=== PATIENT | female | born 1950 | race Caucasian/White ===

== ENCOUNTER → 2016-10-14 | Outpatient (CLI) | payer OTHER ==
--- NOTE | 2016-10-14 15:55 | MAMMOGRAPHY REPORT ---
BILATERAL DIGITAL SCREENING MAMMOGRAM TOMOSYNTHESIS WITH CAD: 10/14/2016 CLINICAL HISTORY: Asymptomatic. Personal history of breast cancer. TECHNIQUE: Breast tomosynthesis in addition to standard 2D mammography was performed. Current study was also evaluated with a Computer Aided Detection (CAD) system. COMPARISON: Comparison is made to exams dated: 10/29/2011 mammogram and 06/07/2015 mammogram. BREAST COMPOSITION: There are scattered areas of fibroglandular density in both breasts. FINDINGS: No suspicious masses, calcifications, or areas of architectural distortion are noted in e ither breast. There has been no significant interval change compared to prior exams. There are stable post surgical changes in the right 12:00 breast from prior lumpectomy, including de nsity, architectural distortion, and coarse benign dystrophic calcifications at the lumpectomy bed. A linear scar marker denotes a scar on the right superior breast. Bilateral benign-appearing calci fications are not significantly changed. IMPRESSION: ACR BI-RADS CATEGORY 2: BENIGN There is no mammographic evidence of malignancy. A 1 year screening mammogram is recommended. The p atient will receive written notification of the results. Approximately 10% of breast cancers are not detected with mammography. A negative mammographic repor t should not delay biopsy if a clinically suggestive mass is present. Macarena Gomez M.D. /:10/14/2016 12:36:47 Aircraft [employer] Technical Officer: Catherine ARRIAZA(Suresh)(M), [facility] letter sent: Normal 1/2 BI-RADS Code: ACR BI-RADS Category 2: Benign
== END | disposition home or self-care (01) ==
LOC: C.MAMM 10:01
PROVIDERS: ATTEND Nurse Practitioner Family
DX: Z12.31 Encounter for screening mammogram for malignant neoplasm of breast (principal); Z85.3 Personal history of malignant neoplasm of breast

== ENCOUNTER 2017-05-28 05:06 | Inpatient (IN) | payer OTHER ==
[2017-04-28 14:04] VITALS: BMI 35.0
--- NOTE | 2017-04-28 14:38 | PAT Medication Instructions ---
Service Date Apr 28, 2017. Current Home Medication List Albuterol Hfa (Ventolin Hfa), 2 PUFFS INH QID PRN for RN Budesonide/Formoterol Fumarate (Symbicort 160/4.5 Inhaler ), 2 PUFFS INH BID Celecoxib (CeleBREX), 200 MG PO QAM Cholecalciferol (Vitamin D3), 4,000 UNITS PO 2XWWEEK Hydrocodone/Acetaminophen 5MG/325MG ([place] 5MG/325MG), 1 TABLET PO TID PRN for N Lisinopril/Hctz (Zestoretic 20MG/25MG), 1 TAB PO QAM Montelukast Sodium (Montelukast Sodium), 1 TAB PO QAM Prednisone (Prednisone), 5 MG PO PRN Simvastatin (Zocor), 20 MG PO QAM [Magnesium Ox], 250 MG PO QAM Medication Instructions For Your Scheduled Surgery - Ask your surgeon for instructions for: Celecoxib (CeleBREX), 200 MG PO QAM - Hold the following medications the morning of surgery: Prednisone (Prednisone), 5 MG PO PRN Lisinopril/Hctz (Zestoretic 20MG/25MG), 1 TAB PO QAM Cholecalciferol (Vitamin D3), 4,000 UNITS PO 2XWWEEK [Magnesium Ox], 250 MG PO QAM - Take the following medications the morning of surgery with a sip of water: Simvastatin (Zocor), 20 MG PO QAM Montelukast Sodium (Montelukast Sodium), 1 TAB PO QAM Hydrocodone/Acetaminophen 5MG/325MG ([place] 5MG/325MG), 1 TABLET PO TID PRN (if needed, can use up to four hours before surgery) Albuterol Hfa (Ventolin Hfa), 2 PUFFS INH QID PRN for RN (BRING WITH YOU TO THE HOSPITAL ON THE DAY OF SURGERY) Budesonide/Formoterol Fumarate (Symbicort 160/4.5 Inhaler ), 2 PUFFS INH BID - Take the following medications as scheduled the night before surgery: Budesonide/Formoterol Fumarate (Symbicort 160/4.5 Inhaler ), 2 PUFFS INH BID Albuterol Hfa (Ventolin Hfa), 2 PUFFS INH QID PRN for RN Hydrocodone/Acetaminophen 5MG/325MG ([place] 5MG/325MG), 1 TABLET PO TID PRN If you have any questions please call us at [phone] or [phone] or [phone]
[2017-04-28 14:59] LABS: BASO % 0.3 %; BASO ABS # 0.03 K/uL (0-0.2); EOS % 1.7 %; EOS ABS # 0.15 K/uL (0-0.5); HEMATOCRIT 39.8 % (37-47); HEMOGLOBIN 13.1 g/dL (12.0-16.0); IG# 0.02 K/uL (0.00-0.02); LYMPH % 26.4 %; LYMPH ABS # 2.28 K/uL (1.2-3.4); MEAN CELL VOLUME 91.7 fL (80-100); MEAN CORPUSCULAR HEMOGLOBIN 30.2 pg (25-34); MEAN CORPUSCULAR HGB CONC 32.9 g/dl (32-36); MEAN PLATELET VOLUME 9.5 fL (7.4-10.4); MONO % 6.9 %; NEUT % 64.5 %; NEUT ABS # 5.57 K/uL (1.4-6.5); PLATELET COUNT 273 K/uL (130-400); RED CELL DISTRIBUTION WIDTH CV 12.9 % (11.5-14.5); RED CELL DISTRIBUTION WIDTH SD 43.5 fL (36.4-46.3); WHITE BLOOD COUNT 8.65 K/uL (4.8-10.8)
[2017-04-28 15:00] LABS: INR 0.9 (0.9-1.1); PTT PATIENT 28.3 SECONDS (21.0-31.0)
[2017-04-28 15:32] LABS: CALCIUM 9.1 mg/dl (8.5-10.1); CREATININE 1.2 mg/dl (0.60-1.20); POTASSIUM 3.9 mmol/L (3.5-5.1)
--- NOTE | 2017-04-28 15:33 | DIAGNOSTIC IMAGING REPORT ---
CHEST 2 VIEWS ROUTINE CLINICAL HISTORY: Preoperative chest COMPARISON STUDY: No previous studies for comparison. FINDINGS: The cardiac and mediastinal contours are normal. There is no evidence of focal pulmonary consolidation. There is no evidence of failure. No pleural effusions are visualized.[ There are surgical clips project over the right axillary region. There are amorphous calcifications project over the right lower lung zone. It is unclear whether these are intra or extrathoracic. IMPRESSION: No active disease in the chest. Electronically signed by: Raj Woods M.D. 04/28/2017 3:32 PM Dictated Date/Time: 04/28/2017 3:31 PM
--- NOTE | 2017-05-26 17:12 | HISTORY & PHYSICAL EXAMINATION ---
DATE OF ADMISSION: 05/28/2017 CHIEF COMPLAINT: Primary osteoarthritis of the right hip. HISTORY OF PRESENT ILLNESS: Azalia is a pleasant 66-year-old female who has been having a several year history of right hip and groin pain. We tried extensive conservative treatment including intraarticular hip injections and physical therapy, but unfortunately she continues to have pain. X-rays and clinical examination have been diagnostic for primary osteoarthritis of the right hip. After failing extensive conservative treatment, she elected to proceed with a right total hip arthroplasty. PAST MEDICAL HISTORY: Significant for asthma, COPD, osteoarthritis, low back pain, obesity and breast cancer. PAST SURGICAL HISTORY: Significant for an appendectomy, right parotidectomy and lumpectomy. ALLERGIES: None. MEDICATIONS: Symbicort 160/4.5 mg 2 puffs twice a day, Ventolin 2 puffs every 4 hours as needed, Celebrex 200 mg daily, simvastatin 20 mg daily, Singulair 10 mg daily, lisinopril/HCTZ 20/125 mg daily, and prednisone 5 mg daily as needed. FAMILY HISTORY: Noncontributory. SOCIAL HISTORY: She is . She has 1-2 drinks a day. She has a 42-year history of a pack a day smoking, but quit in 2013. She does little activity. REVIEW OF SYSTEMS: She complains of right hip pain. All other pertinent review of systems is negative. PHYSICAL EXAMINATION: GENERAL: She is awake, alert and oriented x3. She is in no apparent distress. She is very pleasant. HEENT: Pupils are equal, round and reactive to light. Extraocular motion intact. Oral mucosa is pink and moist. HEART: Regular rate per radial pulse. LUNGS: Daphney symmetrically bilaterally with no audible breath sounds. ABDOMEN: Soft, nontender, and nondistended. MUSCULOSKELETAL: On physical examination of the right hip, she ambulates with a cane. She has significant pain with internal and external rotation of the right hip. Her leg lengths are essentially equal. She is neurovascularly intact. IMAGING DATA: X-rays of the right hip do show advanced osteoarthritis with joint space narrowing and osteophyte formation. IMPRESSION: Primary osteoarthritis of the right hip. PLAN: We will proceed with a right total hip arthroplasty. Postoperatively, she will be started on aspirin for DVT prophylaxis and kept in the hospital for postoperative medical management.
[~2017-05-28] VITALS: Ht 162.6 cm; Wt 93.1 kg
[2017-05-28] VITALS (7 sets, daily range): BP systolic 100–144; BP diastolic 62–73; PULSE 80–102; TEMP 36.3–37; O2SAT 93–100; Ht 162.6 cm; Wt 93.1 kg
[~2017-05-28 05:06] MED LIST: CHOL20007 PO; CLB/200 PO; HYDR-5688 PO; LISI-788 PO; MAGNESIUM OX PO; MONT1TAB5 PO; PRED-301 PO; SIMV20TA2 PO; SYMIN160 INH; VNTHFA/IN INH
[2017-05-28] MEDS ORDERED: FAMOTIDINE 20 MG TAB PO SCH (06:00)
[2017-05-28] MEDS ORDERED: CEFAZOLIN 2000MG IV PUSH 10 ML IV SCH (06:00)
[2017-05-28] MEDS ORDERED: ROPIVACAINE 5MG/ML 30 ML 150 MG, BUPIVACAINE 0.5% MPF INJ 30 ML, EpINEphrine HCL INJ 0.... INFIL SCH ×8 (06:00)
[2017-05-28] MEDS ORDERED: GABAPENTIN 300 MG CAP PO SCH (06:00)
[2017-05-28] MEDS ORDERED: LACTATED RINGER'S 1000ML 500 ML IV ONE (06:00)
[2017-05-28] MEDS ORDERED: LACTATED RINGER'S 1000ML 1,000 ML IV SCH ×2 (06:00)
[2017-05-28] MEDS ORDERED: ACETAMINOPHEN 500 MG TAB PO SCH (06:00)
[2017-05-28] MEDS ORDERED: BUPIVACAINE 0.5 % 5 MG/1 ML PF 10ML VIAL ONE (06:30)
[2017-05-28] MEDS ORDERED: BACITRACIN 50000 UNIT VIAL ONE ×2 (06:41→10:52)
[2017-05-28] MEDS ORDERED: ORTHO JOINT ANESTHETIC ONE (06:41)
[2017-05-28] MEDS ORDERED: MIDAZOLAM HCL 1 MG/ML 2ML VIAL ONE ×4 (06:42→08:53)
[2017-05-28] MEDS: TRANEXAMIC ACID INJ 1,000 MG in SYRINGE 0 ML IV SCH ×2 (06:43→16:11)
[2017-05-28] MEDS ORDERED: FENTANYL CITRATE INJ 50 MCG/1 ML 2 ML VIAL ONE ×2 (06:43→14:36)
[2017-05-28] MEDS ORDERED: PROPOFOL IV EMULSION 10 MG/ML 20 ML VIAL IV ONE ×3 (06:50→12:50)
--- NOTE | 2017-05-28 06:55 | History & Physical Bridge Note ---
H&P Re-Evaluation Bridge Note: I have examined the patient, reviewed the History & Physical and in the interval since the performance of the History & Physical I have noted the following changes of clinical significance: No changes noted
[2017-05-28] MEDS ORDERED: ATROPINE SULFATE 0.1 MG/ML 5ML SYR IV PRN (07:15)
[2017-05-28] MEDS ORDERED: EpHEDrine SULFATE INJ 50 MG/ML AMP IV PRN (07:15)
[2017-05-28] MEDS ORDERED: FENTANYL CITRATE INJ 50 MCG/1 ML 2 ML VIAL IV PRN (07:15)
[2017-05-28] MEDS ORDERED: ONDANSETRON INJ 2 MG/ML 2 ML VIAL IV PRN ×2 (07:15→13:45)
[2017-05-28] MEDS ORDERED: ONDANSETRON INJ 2 MG/ML 2 ML VIAL ONE (07:54)
[2017-05-28] MEDS ORDERED: DEXAMETHASONE SOD INJ 4 MG/ML VIAL ONE (07:54)
[2017-05-28] MEDS ORDERED: EpHEDrine SULFATE INJ 50 MG/ML AMP ONE (13:00)
[2017-05-28] MEDS ORDERED: PHENYLEPHRINE HCL INJ 10 MG/ML VIAL ONE (13:01)
--- NOTE | 2017-05-28 13:24 | DIAGNOSTIC IMAGING REPORT ---
R HIP UNILATERAL 1 VIEW CLINICAL HISTORY: RT ANTERIOR TOTAL hip arthroplasty. COMPARISON STUDY: Right hip 04/28/2017. FINDINGS: Total fluoroscopy time was 1 minute and 27 seconds. 4 fluoroscopic spot images of the right hip. There is a right total hip arthroplasty. The hardware appears intact. No fracture or dislocation. IMPRESSION: Fluoroscopy provided for right total hip arthroplasty. Electronically signed by: Anders Cortez M.D. 05/28/2017 1:23 PM Dictated Date/Time: 05/28/2017 1:22 PM
--- NOTE | 2017-05-28 13:36 | [facility] Post Operative Brief Note ---
Immediate Operative Summary Operative Date May 28, 2017. Pre-Operative Diagnosis Primary Osteoarthritis of Right Hip Post-Operative Diagnosis Same as preoperative Procedure(s) Performed Right Anterior Total Hip Arthroplasty, Cemented, with Kirk Diehl Surgeon Dr. Iván Castro Teaching Music Lessons Surgeon(s) Landon Apple PA-C Estimated Blood Loss 500 ml Findings as above Specimens A.) Right Femoral Head Complication(s) small crack around proximal femur that required cabling then a cemented stem Disposition Recovery Room / PACU
[2017-05-28] MEDS ORDERED: CEFAZOLIN IV 2,000 MG in DEXTROSE 5% 50ML 50 ML IV SCH (13:45)
[2017-05-28] MEDS ORDERED: MAGNESIUM HYDROXIDE SUSP 30 ML UDC PO PRN (13:45)
[2017-05-28] MEDS ORDERED: METOCLOPRAMIDE HCL INJ 5 MG/ML 2 ML VIAL IV PRN (13:45)
[2017-05-28] MEDS ORDERED: BISACODYL 10 MG SUPP PR PRN (13:45)
[2017-05-28] MEDS ORDERED: ALBUTEROL HFA 8 GM INHALER INH PRN (13:45)
[2017-05-28] MEDS ORDERED: SOD PHOSPHATE/SOD BIPHOSPHATE ENEMA 132 ML BTL PR PRN (13:45)
--- NOTE | 2017-05-28 14:26 | DIAGNOSTIC IMAGING REPORT ---
AP PELVIS, CROSSTABLE LATERAL RIGHT HIP History: Right total hip arthroplasty. Degenerative arthritis. Postop. FINDINGS: The patient is status post a right total hip arthroplasty. The hardware is intact. No fracture or dislocation. Skin paras and surgical drains are in place. IMPRESSION: Right total hip arthroplasty. No evidence for hardware complication Electronically signed by: Anders Cortez M.D. 05/28/2017 2:25 PM Dictated Date/Time: 05/28/2017 2:23 PM
--- NOTE | 2017-05-28 14:37 | OPERATIVE REPORT ---
DATE OF OPERATION: 05/28/2017 PREOPERATIVE DIAGNOSIS: Primary osteoarthritis of the right hip. POSTOPERATIVE DIAGNOSIS: Same. PROCEDURE: Right total hip arthroplasty. SURGEON: Dr. Iván Castro. LEARNING SPECIALIST: Landon Apple PA-C. ANESTHESIA: Spinal that was converted to general. COMPLICATIONS: Small crack in the proximal femur that was treated with a cerclage wire and then a long cemented stem. CONDITION: Stable to PACU. IMPLANTS USED: I used a Ana CRC size 13 x 170 cemented stem with a size 32 ceramic head with a -3 neck and a 48 mm cup with a size 32 E-poly liner and a single 20 mm screw. INDICATIONS: Azalia is a pleasant 66-year-old female who presented to my office with chronic severe right hip and groin pain. X-rays and clinical examination were diagnostic for severe osteoarthritis of the right hip. After failing conservative treatment, she elected to undergo a right total hip arthroplasty. OPERATION AND FINDINGS: On 05/28/2017 she arrived at [facility] for the above procedure. She was seen in the preoperative holding area and the operative extremity is identified and signed. She was given a preoperative antibiotic and a spinal anesthetic. She was taken back to the operating room, laid on the table in supine position and put under basic sedation. The right hip was then brought out to a Purist leg positioner. The right hip was then prepped and draped in sterile fashion. Time-out was done and the patient and operative extremity was properly identified. An anterior approach was used. Dissection was taken down through the fascia and the tensor muscle was retracted laterally and the rectus was retracted medially. The circumflex vessels were ligated and the capsule was incised and tagged for later repair. The femoral neck was then resected and the acetabulum was exposed. Sequential reaming up to a size 47 reamer was done. This gave good circumferential bleeding bone. A 48 mm cup was then impacted into place. A single 20 mm screw was placed and E-poly liner was snapped into place. The cup positioning was checked under fluoroscopy. The proximal femur was then exposed. The canal was opened and a single broach was placed down the canal. I was not real happy with the alignment so I got an x-ray. The x-rays showed that the broach had penetrated the posterolateral cortex. Unfortunately I then noticed a crack going vertically up through the greater trochanter. I placed a cerclage wire around the proximal femur. I then did sequential broaching and the broaching looked good. I decided to cement down the stem just for added stability. The stem was cemented and x-rays showed that the cemented stem had also gone out the posterolateral cortex. The stem was then removed and the cement was removed with an Ultra-Drive device. Once this cement was removed a size 13 x 170 Ana CRC long stem stem was trialed. I was able to easily get it down the canal. A size 32 -3 neck was then trialed and the hip was reduced. Fluoroscopic x-rays showed anatomic alignment. The final size 13 x 170 Ana stem was then cemented in place. A 32 mm ceramic head with -3 neck was then impacted into place. The hip was reduced. Final fluoroscopic x-rays were taken. I was happy with the overall alignment, with the version and the leg lengths were back anatomically. The surrounding soft tissues were injected with 100 mL orthopedic pain control cocktail. The surrounding soft tissues were then irrigated with 3 liters of normal saline solution with bacitracin. Gurley through the case, all gloves and gowns were changed and she got another dose of antibiotics and we were about 2-1/2 hours into the case. A drain was placed. The fascia was then closed with #1 PDS suture. Skin was closed with 3-0 Vicryl, 3-0 V-Loc suture and paras. Prinovac dressing was placed. She did have a little abrasion at the superior aspect of her incision that was documented. She was then extubated and taken to the postanesthesia care unit in stable condition. She tolerated the procedure well. I attest to the content of the Intraoperative Record and any orders documented therein. Any exceptions are noted below. IWONA
--- NOTE | 2017-05-28 14:59 | Anesthesiology Progress Note ---
Anesthesia Post Op Note Date & Time May 28, 2017 at 14:58 Vital Signs Pain Intensity: 4 Vital Signs Past 12 Hours Date Time Temp Pulse Resp B/P (MAP) Pulse Ox O2 Delivery O2 Flow Rate FiO2 05/28/17 14:55 79 13 104/60 94 Nasal Cannula 2 05/28/17 14:45 77 14 108/71 98 Nasal Cannula 2 05/28/17 14:35 74 15 97/66 99 Nasal Cannula 2 05/28/17 14:25 69 14 100/65 100 Oxymask 10 05/28/17 14:15 76 18 129/57 100 Oxymask 10 05/28/17 14:07 36.0 70 16 123/71 100 Oxymask 10 05/28/17 05:40 37 96 20 144/72 94 Room Air Notes Mental Status: alert / awake / arousable, participated in evaluation Pt Amnestic to Procedure: Yes Nausea / Vomiting: adequately controlled Pain: adequately controlled Airway Patency, RR, SpO2: stable & adequate BP & HR: stable & adequate Hydration State: stable & adequate Neuraxial Anesthesia: was administered, sensory block is resolving Anesthetic Complications: no major complications apparent
[2017-05-28] MEDS: OXYCODONE HCL IR 5 MG TAB (IMMEDIATE RELEASE) PO PRN ×2 (16:26→21:21)
[2017-05-28] MEDS: ACETAMINOPHEN IV 1,000 MG in EMPTY BAG 0 ML IV SCH ×2 (16:46→23:35)
[2017-05-28] MEDS: SODIUM CHLORIDE 0.9% 1000ML 1,000 ML IV SCH (16:49)
[2017-05-28] MEDS ORDERED: NURSING VERBAL MED ORDER ONE ×2 (17:00→18:30)
[2017-05-28] MEDS: CEFAZOLIN IV 2,000 MG in SYRINGE 0 ML IV SCH (17:55)
[2017-05-28] MEDS: MoRPHine SULFATE 2 MG/ML CARP IV PRN (20:35)
[2017-05-28] MEDS: DOCUSATE SODIUM 100 MG CAP PO SCH (21:13)
[2017-05-28] MEDS: SENNA 8.6 MG TAB PO SCH (21:14)
[2017-05-28] MEDS: BUDESONIDE/FORMOTEROL FUMARATE 160/4.5 60 PUFFS/INHALER INH SCH (21:14)
[2017-05-28] MEDS: ASPIRIN 325 MG ECTAB PO SCH (21:18)
[2017-05-29] VITALS (10 sets, daily range): BP systolic 99–126; BP diastolic 55–70; PULSE 96–112; TEMP 36.6–37; O2SAT 92–98
[2017-05-29] MEDS: CEFAZOLIN IV 2,000 MG in SYRINGE 0 ML IV SCH (02:38)
[2017-05-29] MEDS: SODIUM CHLORIDE 0.9% 1000ML 1,000 ML IV SCH ×2 (02:38→13:02)
[2017-05-29 06:15] LABS: BASO % 0.1 %; BASO ABS # 0.01 K/uL (0-0.2); HEMATOCRIT 25.2 % (37-47); HEMOGLOBIN 8.5 g/dL (12.0-16.0); IG# 0.05 K/uL (0.00-0.02); LYMPH % 7.5 %; LYMPH ABS # 1.06 K/uL (1.2-3.4); MEAN CORPUSCULAR HGB CONC 33.7 g/dl (32-36); MEAN PLATELET VOLUME 9.6 fL (7.4-10.4); MONO % 9.1 %; MONO ABS # 1.29 K/uL (0.11-0.59); NEUT % 82.9 %; NEUT ABS # 11.75 K/uL (1.4-6.5); PLATELET COUNT 193 K/uL (130-400); RED CELL DISTRIBUTION WIDTH CV 13.5 % (11.5-14.5); RED CELL DISTRIBUTION WIDTH SD 45.5 fL (36.4-46.3); WHITE BLOOD COUNT 14.16 K/uL (4.8-10.8)
[2017-05-29 06:51] LABS: CREATININE 1.33 mg/dl (0.60-1.20); POTASSIUM 4.5 mmol/L (3.5-5.1)
[2017-05-29] MEDS: ACETAMINOPHEN IV 1,000 MG in EMPTY BAG 0 ML IV SCH (07:42)
[2017-05-29] MEDS: MoRPHine SULFATE 2 MG/ML CARP IV PRN (07:43)
[2017-05-29] MEDS: BUDESONIDE/FORMOTEROL FUMARATE 160/4.5 60 PUFFS/INHALER INH SCH ×2 (07:49→22:11)
[2017-05-29] MEDS: MULTIVITAMIN TAB PO SCH (07:50)
[2017-05-29] MEDS: DOCUSATE SODIUM 100 MG CAP PO SCH ×2 (07:50→22:12)
[2017-05-29] MEDS: ASPIRIN 325 MG ECTAB PO SCH ×2 (07:50→22:12)
[2017-05-29] MEDS: MAGNESIUM OXIDE 400 MG TAB PO SCH (07:50)
[2017-05-29] MEDS: LISINOPRIL/HCTZ 20/25MG TAB PO SCH (07:51)
[2017-05-29] MEDS: MONTELUKAST SOD 10 MG TAB PO SCH (07:51)
[2017-05-29] MEDS: PANTOprazole SOD 40 MG TAB PO SCH (07:51)
[2017-05-29] MEDS: SIMVASTATIN 20 MG TAB PO SCH (07:51)
[2017-05-29] MEDS: OXYCODONE HCL IR 5 MG TAB (IMMEDIATE RELEASE) PO PRN ×3 (11:31→23:57)
[2017-05-29] MEDS: KETOROLAC TROMETHAMINE 15 MG/ML VIAL IM SCH ×2 (13:45→22:15)
[2017-05-29] MEDS: SENNA 8.6 MG TAB PO SCH (22:12)
[2017-05-29] MEDS: ACETAMINOPHEN 500 MG TAB PO SCH (22:13)
[2017-05-30] MEDS: ACETAMINOPHEN 500 MG TAB PO SCH ×3 (05:17→21:40)
[2017-05-30] MEDS: OXYCODONE HCL IR 5 MG TAB (IMMEDIATE RELEASE) PO PRN ×4 (05:17→21:41)
[2017-05-30 05:50] LABS: HEMATOCRIT 25.7 % (37-47); HEMOGLOBIN 8.5 g/dL (12.0-16.0)
[2017-05-30] MEDS ORDERED: NURSING VERBAL MED ORDER ONE ×2 (06:15→09:45)
[2017-05-30] MEDS: KETOROLAC TROMETHAMINE 15 MG/ML VIAL IV. SCH ×3 (06:33→21:42)
[2017-05-30 07:00] VITALS: BP 98/60; PULSE 89; TEMP 36.6; O2SAT 92
[2017-05-30] MEDS: BUDESONIDE/FORMOTEROL FUMARATE 160/4.5 60 PUFFS/INHALER INH SCH ×2 (08:44→21:39)
[2017-05-30] MEDS: MAGNESIUM OXIDE 400 MG TAB PO SCH (08:45)
[2017-05-30] MEDS: DOCUSATE SODIUM 100 MG CAP PO SCH ×2 (08:45→21:00)
[2017-05-30] MEDS: LISINOPRIL/HCTZ 20/25MG TAB PO SCH (08:46)
[2017-05-30] MEDS: MULTIVITAMIN TAB PO SCH (08:46)
[2017-05-30] MEDS: MONTELUKAST SOD 10 MG TAB PO SCH (08:46)
[2017-05-30] MEDS: PANTOprazole SOD 40 MG TAB PO SCH (08:46)
[2017-05-30] MEDS: SIMVASTATIN 20 MG TAB PO SCH (08:46)
[2017-05-30] MEDS: ASPIRIN 325 MG ECTAB PO SCH ×2 (08:52→21:39)
[2017-05-30] MEDS ORDERED: CHOLECALCIFEROL 1000 INTER.UNIT TAB PO SCH (09:00)
[2017-05-30] MEDS ORDERED: HYDR-5688 PO (09:41)
[2017-05-30] MEDS ORDERED: ASPEC325 PO (09:42)
--- NOTE | 2017-05-30 09:44 | Discharge Instructions ---
Discharge Instructions Date of Service May 30, 2017. Admission Reason for Admission: Right Hip Osteoarthritis Discharge Discharge Diagnosis / Problem: Right Total Hip Discharge Goals Goal(s): Decrease discomfort, Improve function Activity Recommendations Activity Limitations: as noted below . Instructions / Follow-Up Instructions / Follow-Up Activity and Therapy Recommendations: * If you are using [facility] then Physical Therapy will be provided until they feel you are ready to start Outpatient Physical Therapy. If you are not using a Home Health agency then Outpatient Physical Therapy should start about 3-5 days from your day of surgery. Therapy will last about 3-6 weeks * You were shown a series of exercises in the hospital. Do these exercises three times each day including the exercises you were shown in physical therapy. * Get up and walk several times each day.~ For the first four weeks, try not to stand or walk for more than one hour at a time. If you do stand or walk for more than one hour, you will not hurt anything, but your leg will likely swell.~ ~ * As you feel comfortable, you may change from the walker or crutches to a cane and~then to independent walking. Medications: * Narcotic You will likely be sent home from the hospital with a prescription for the narcotic pain medication that worked best throughout your stay. * Aspirin Most patients will be required to take Aspirin 325mg twice a day for 6 weeks after surgery. This is obtained [id number] and a prescription is not necessary. * Other medications may be prescribed for specific circumstances. If you have any questions, please call the office at . * Resume previous home medications unless otherwise instructed TEDs/Elastic Stockings: The white elastic stockings help limit swelling and prevent blood clots from forming in your legs. The more you wear them, the more they work. Wear them for six weeks. Dressing Care: Leave the vac dressing on for 10 days Showering: Please do not shower with the vac dressing in place. May bathe, but keep the vac dry. Things To Watch For: * Drainage from the incision site that occurs more than one week after your surgery. * Increased redness at the incision site. * Fever above 102 degrees Fahrenheit. * Unusual chest pain or shortness of breath. * Call [facility] at with any of the above problems Follow-Up Visit: Follow-up with Dr. Castro on Wednesday (10 days from the surgery). An appointment was probably scheduled when you signed-up for surgery in the office. If you have any questions call Office Instructions: More detailed instructions as well as Frequently Asked Questions were provided in a folder by our office when you signed-up for surgery. Please review these instructions when you get home. If you have any further questions or concerns, please feel free to call the office at [phone] Current Hospital Diet Patient's current hospital diet: Regular Diet Discharge Diet Recommended Diet: Regular Diet Procedures Procedures Performed: Right Anterior Total Hip Arthroplasty, Cemented, with Kirk Leigh Cabling Pending Studies Studies pending at discharge: no Medical Emergencies . Who to Call and When: Medical Emergencies: If at any time you feel your situation is an emergency, please call 911 immediately. . Non-Emergent Contact Non-Emergency issues call your: Surgeon Call Non-Emergent contact if: wound has increased drainage, wound has increased redness . "Provider Documentation" section prepared by Iván Castro. . VTE Core Measure Inpt VTE Proph given/why not?: Other Anticoagulation (Aspirin 325 twice a day for 6 weeks)
[2017-05-30] MEDS ORDERED: SILVER SULFADIAZINE 1% CR 50 GM JAR EXT ONE (10:00)
[2017-05-30 13:00] VITALS: BP_SYST 110; BP_SYST 113; BP_SYST 120; BP_DIAS 63; BP_DIAS 67; BP_DIAS 68
[2017-05-30 14:58] VITALS: BP 128/89; PULSE 105; TEMP 36.8; O2SAT 97
[2017-05-30] MEDS: SENNA 8.6 MG TAB PO SCH (15:59)
[2017-05-30 23:10] VITALS: BP 92/60; PULSE 97; TEMP 36.9; O2SAT 92
[2017-05-31] VITALS (16 sets, daily range): BP systolic 94–131; BP diastolic 62–77; PULSE 81–101; TEMP 36.4–37; O2SAT 95–97
[2017-05-31] MEDS: KETOROLAC TROMETHAMINE 15 MG/ML VIAL IV. SCH ×3 (05:41→21:23)
[2017-05-31] MEDS: ACETAMINOPHEN 500 MG TAB PO SCH ×3 (05:41→21:26)
[2017-05-31] MEDS: OXYCODONE HCL IR 5 MG TAB (IMMEDIATE RELEASE) PO PRN ×3 (06:01→21:27)
[2017-05-31 06:16] LABS: HEMATOCRIT 24.5 % (37-47); HEMOGLOBIN 7.9 g/dL (12.0-16.0)
--- NOTE | 2017-05-31 07:05 | PROGRESS NOTE ---
DATE: 05/29/2017 CHIEF COMPLAINT: Status post right total hip arthroplasty postop day #1. PROGRESS: Azalia was seen and examined at bedside today. Overall, she is doing okay. She has lost soreness in her hip. She tried to get up a little bit yesterday, but she was feeling a little bit lightheaded. She was able to get up and use the commode. She has not been doing much ambulating. She feels a little bit wash out this morning. PHYSICAL EXAMINATION: VITAL SIGNS: Mostly stable on room air. She is a little tachycardic and she is voiding on her own. RIGHT LEG: The Prinovac is in place and to good suction. There is also a drain in place into good suction. Her leg lengths are essentially equal. She has active dorsiflexion and plantarflexion of her right ankle and sensation is intact to her quad. DATA: She has an H&H today of 8.5 and 25.2. Her glucose is 139. Her creatinine is 133. X-rays postoperatively of the right hip show a well placed, well cemented right total hip arthroplasty. The cup is in good alignment. The overall leg length was restored and the versions looked good: There is a crack in the proximal femur that extends up into the greater trochanter. There is a well-placed cerclage wire. IMPRESSION: 1. Status post right total hip arthroplasty postoperative day #1. 2. Acute blood loss anemia. PLAN: I went over everything with her again at bedside today. I went over the crack in the femur that extends up into the greater trochanter, I went over the cerclage wire and the long length cemented stem. She has good stability of the hip. I am happy with the overall alignment of the hip but still want to be a little cautious with the greater trochanteric piece. I am going to continue to follow hip precautions with her, but she can be up and weightbearing as tolerated. I do want to give her 1 unit of packed red blood cells today because she is feeling a little bit symptomatic from the anemia and I am concerned she might drop a little bit more tomorrow. We will continue aspirin 325 mg twice a day for DVT prophylaxis as long as she can get up and continue walking around. We will continue to follow her closely. IWONA
--- NOTE | 2017-05-31 07:11 | PROGRESS NOTE ---
DATE: 05/30/2017 CHIEF COMPLAINT: Status post right total hip arthroplasty, postop day #2. PROGRESS: Azalia was seen and examined at bedside today. She feels better today. She had a unit of blood yesterday and did not get up with physical therapy, but she says overall her hip is feeling better. She has been up and ambulating around the room and going to the bathroom, but she has not been to the hallway yet. She has some soreness in her hip, but it is not too bad. She has no other complaints. PHYSICAL EXAMINATION: RIGHT HIP: The dressing has been changed and the Prinovac dressing is in place. She does have a few little blisters around the area. She also has a small blister on her left calf that was pointed out to me by the nursing staff. She has active dorsiflexion and plantarflexion of her right ankle and leg lengths are equal. LABORATORY DATA: She has an H&H today of 8.5 and 25.7. Her vital signs were all stable on room air. She is a little hypotensive. She is voiding on her own and has had a bowel movement. IMPRESSION: Status post right total hip arthroplasty, postop day #2. PLAN: She will be seen by physical therapy today for ambulation. We will keep her in the hospital today for pain control as well. We will get another H&H tomorrow morning. It they had dropped considerably, then we might consider another unit of packed red blood cells. As long as it looks okay, she may be ready for discharge to home. The Prinovac dressing will be on for 10 days. IWONA
--- NOTE | 2017-05-31 08:03 | Anesthesiology Progress Note ---
Anesthesia Post Op Note Date & Time May 31, 2017 at 08:02 Vital Signs Vital Signs Past 12 Hours Date Time Temp Pulse Resp B/P (MAP) Pulse Ox O2 Delivery O2 Flow Rate FiO2 05/31/17 07:52 Room Air 05/31/17 06:10 36.6 97 16 118/73 (88) 95 Room Air 05/30/17 23:15 Room Air 05/30/17 23:10 36.9 97 16 92/60 (71) 92 Room Air Notes Mental Status: alert / awake / arousable, participated in evaluation Pt Amnestic to Procedure: Yes Nausea / Vomiting: adequately controlled Pain: adequately controlled Airway Patency, RR, SpO2: stable & adequate BP & HR: stable & adequate Hydration State: stable & adequate Neuraxial Anesthesia: sensory block resolved Anesthetic Complications: no major complications apparent
[2017-05-31] MEDS: BUDESONIDE/FORMOTEROL FUMARATE 160/4.5 60 PUFFS/INHALER INH SCH ×2 (08:25→21:25)
[2017-05-31] MEDS: DOCUSATE SODIUM 100 MG CAP PO SCH ×2 (08:25→21:26)
[2017-05-31] MEDS: MAGNESIUM OXIDE 400 MG TAB PO SCH (08:26)
[2017-05-31] MEDS: ASPIRIN 325 MG ECTAB PO SCH ×2 (08:26→21:26)
[2017-05-31] MEDS: MONTELUKAST SOD 10 MG TAB PO SCH (08:27)
[2017-05-31] MEDS: MULTIVITAMIN TAB PO SCH (08:27)
[2017-05-31] MEDS: PANTOprazole SOD 40 MG TAB PO SCH (08:27)
[2017-05-31] MEDS: LISINOPRIL/HCTZ 20/25MG TAB PO SCH (08:27)
[2017-05-31] MEDS: SIMVASTATIN 20 MG TAB PO SCH (08:28)
--- NOTE | 2017-05-31 19:15 | PROGRESS NOTE ---
DATE: 05/31/2017 CHIEF COMPLAINT: Status post right total hip arthroplasty postop day #3. PROGRESS: Azalia was seen and examined at bedside today. Overall, she is doing better. She got 2 units of packed red blood cells today and she is feeling much better. She was up and ambulated about 225 feet today with therapy and was also able to do some stairs. She is feeling better and ready to go home tomorrow. She has no complaints. PHYSICAL EXAMINATION: The Prineo VAC dressing is to suction. Her leg lengths are essentially equal. She has active dorsiflexion and plantarflexion of her right ankle. Sensation is intact throughout. LABORATORY DATA: She has an H&H this morning of 7.9 and 24.5. We will get another H&H tomorrow. IMPRESSION: 1. Status post right total hip arthroplasty postop day #3. 2. Postoperative blood loss anemia. PLAN: She feels much better after getting the 2 units today. She has been up and ambulating rather well. I did spend time describing the fracture of the greater trochanter with her. I explained the cable as well as the cementing of the prosthesis. She is fully aware of everything and seems to understand. I do want her to follow hip precautions; however, she does not have any other restrictions and she is able to weightbear as tolerated. Will continue with aspirin 325 mg twice a day for DVT prophylaxis as well as JESSIE hose stockings. Will plan to discharge her to home tomorrow morning. I will see her in the office on Wednesday, in a week from now to remove Prineo VAC dressing.
[2017-05-31] MEDS: SENNA 8.6 MG TAB PO SCH (21:26)
[2017-06-01] MEDS: OXYCODONE HCL IR 5 MG TAB (IMMEDIATE RELEASE) PO PRN ×2 (02:58→07:16)
[2017-06-01] MEDS: ACETAMINOPHEN 500 MG TAB PO SCH (05:34)
[2017-06-01] MEDS: KETOROLAC TROMETHAMINE 15 MG/ML VIAL IV. SCH (05:35)
[2017-06-01 06:48] VITALS: BP 122/72; PULSE 77; TEMP 36.6; O2SAT 99
[2017-06-01 06:50] LABS: HEMATOCRIT 31.4 % (37-47); HEMOGLOBIN 10.2 g/dL (12.0-16.0)
--- NOTE | 2017-06-01 06:53 | ORTHOPEDIC PROGRESS NOTE ---
DATE: 06/01/2017 CHIEF COMPLAINT: She is postop day #3 total right hip arthroplasty. HISTORY OF PRESENT ILLNESS: Azalia is a 66-year-old female who underwent right total hip arthroplasty on Wednesday05/28/2017. She tolerated the procedure well. On visit this morning she is sitting in a chair at bedside. She is comfortable. She has some minor complaints of some right hip pain. She has intermittent spells of dizziness and fatigue as well. PHYSICAL EXAMINATION: VITAL SIGNS: 36.6 degree Celsius orally. Her pulse was 97, respiratory rate was 16, blood pressure 118/73, pulse ox is 95 on room air. EXTREMITIES: The Prevena dressing is good to suction. Leg lengths are equal. MUSCULOSKELETAL: She has active dorsiflexion and plantarflexion to her right ankle. Good sensation in bilateral lower extremities. LABORATORY DATA: Her H&H this morning was 7.9 and 24.5. IMPRESSION: 1. Status post total right hip arthroplasty, postop day #3. 2. Postoperative blood loss anemia. PLAN: With her H&H is low, we are going to get a 2 units of packed red blood cells. We will have her stay inpatient 1 more day. We will anticipate discharge to home tomorrow. She expresses that she would home health to help her when she gets discharged. We will keep her today and monitor vital signs. We will have her continue following hip precautions. Continue with DVT prophylaxis with 325 mg of aspirin twice a day. JESSIE hose stockings. We will plan on discharge tomorrow. IWONA
--- NOTE | 2017-06-01 07:29 | PROGRESS NOTE ---
DATE: 06/01/2017 CHIEF COMPLAINT: Status post right total hip arthroplasty, postop day #4. PROGRESS: Azalia was seen and examined at bedside today. Overall, she is feeling much better. She is awake and alert. She says she feels the best she has since she has been at the hospital. She is looking forward to going home today. PHYSICAL EXAMINATION: RIGHT HIP: The Prevena is to suction and intact. Leg lengths are essentially equal. She has active dorsiflexion and plantarflexion of her right ankle. Sensation is intact throughout. LABORATORY DATA: She has an H&H today of 10.2 and 31.4. Her vital signs are all stable on room air. She is voiding on her own. IMPRESSION: 1. Status post right total hip arthroplasty postop day #4. 2. Acute blood loss anemia. PLAN: At this point, she seems to be doing well. She is doing much better. She has been up and ambulating well with physical therapy. We are going to send her home today with [facility]. IWONA
--- NOTE | 2017-06-01 07:59 | DISCHARGE SUMMARY ---
DISCHARGE DIAGNOSES: 1. Primary osteoarthritis of the right hip. 2. Acute blood loss anemia. PROCEDURE: Right total hip arthroplasty on 05/28/[address] Iván Castro. DISCHARGE INSTRUCTIONS: 1. Aspirin 325 twice a day for 6 weeks. 2. [place] 5/325 one tab 3 times a day as needed for pain. 3. Follow hip precautions. 4. Weightbear as tolerated. 5. Follow up with Dr. Castro in 2 weeks. 6. Call the office of Dr. Castro with any questions or concerns. 7. Albuterol 2 puffs 4 times a day as needed. 8. Symbicort 2 puffs twice a day. 9. Celebrex 200 mg daily. 10. Vitamin D3 4000 units twice a week. 11. Zestoretic 20/25 mg daily. 12. Singulair 10 mg daily. 13. Prednisone 5 mg daily. 14. Zocor 20 mg daily. 14. Magnesium 250 mg daily. HOSPITAL COURSE: Azalia is a pleasant 66-year-old female who presented to my office with complaints of chronic right hip and groin pain. X-rays and clinical examination were diagnostic for primary osteoarthritis of the right hip. After failing conservative treatment, she elected to undergo a right total hip arthroplasty. On 05/28/2017 she arrived at [facility]. She had a spinal anesthetic and underwent a right hip replacement. There was a small crack in the proximal femur which required a cable fixation and exchange of the stem. This caused the procedure to take longer then expected. Postoperatively, she was started on aspirin for DVT prophylaxis and discharged to general orthopedic floor. Postoperative x-rays showed anatomic alignment. On day #1, her H&H was a little low at 8.5 and 25.2. I did give her 1 unit of packed red blood cells. She did not see therapy on day 1. On day #2, her H&H was stable at 8.5 and 25.7. She was seen by physical therapy and able to ambulate around the room. She was having soreness in the hip, but was fairly well controlled. On postop day #3, she was feeling a little bit more washed out, she was slightly nauseous and her H&H was 7.9 and 24.5. I did give her 2 units of packed red blood cells. That made her feel a lot better. She was able to ambulate well with physical therapy on day 3 and was feeling much better. On postop day #4, she was feeling fine. Her H&H was 10.2 and 31.4. She was seen once again by physical therapy and subsequently discharged to home with the above instructions. To note, she does have a Prevena dressing in place and I will see her in the office on Wednesday a week from now to remove the Prevena dressing. IWONA
[2017-06-01] MEDS: BUDESONIDE/FORMOTEROL FUMARATE 160/4.5 60 PUFFS/INHALER INH SCH (08:38)
[2017-06-01] MEDS: PANTOprazole SOD 40 MG TAB PO SCH (08:38)
[2017-06-01] MEDS: DOCUSATE SODIUM 100 MG CAP PO SCH (08:38)
[2017-06-01] MEDS: ASPIRIN 325 MG ECTAB PO SCH (08:38)
[2017-06-01] MEDS: MONTELUKAST SOD 10 MG TAB PO SCH (08:38)
[2017-06-01] MEDS: MAGNESIUM OXIDE 400 MG TAB PO SCH (08:39)
[2017-06-01] MEDS: SIMVASTATIN 20 MG TAB PO SCH (08:39)
[2017-06-01] MEDS: MULTIVITAMIN TAB PO SCH (08:39)
[2017-06-01] MEDS: LISINOPRIL/HCTZ 20/25MG TAB PO SCH (08:39)
[2017-06-01 08:41] VITALS: BP 122/72; PULSE 77; TEMP 36.6; O2SAT 99
== END 2017-06-01 11:40 | disposition home or self-care (01) | DRG 470 ==
LOC: C.ACU 05:06 → C.3E 06:30 → ENRESERV 15:00
PROVIDERS: ADMIT Orthopaedic Surgery; ATTEND Orthopaedic Surgery
PROC: 0SR9049 Replacement of Right Hip Joint with Ceramic on Polyethylene Synthetic Substitute, Cemented, Open Approach (ICD-10-PCS; principal; 2017-05-28 07:00)
PROC: 0QQ60ZZ Repair Right Upper Femur, Open Approach (ICD-10-PCS; principal; 2017-05-28 07:00)
DX: M16.11 Unilateral primary osteoarthritis, right hip (principal); M96.89 Other intraoperative and postprocedural complications and disorders of the musculoskeletal system; D62 Acute posthemorrhagic anemia; J45.909 Unspecified asthma, uncomplicated; J44.9 Chronic obstructive pulmonary disease, unspecified; E66.9 Obesity, unspecified; Z79.899 Other long term (current) drug therapy; Z85.3 Personal history of malignant neoplasm of breast; Z68.35 Body mass index [BMI] 35.0-35.9, adult; Z87.891 Personal history of nicotine dependence; Y65.8 Other specified misadventures during surgical and medical care; Y92.234 Operating room of hospital as the place of occurrence of the external cause

== ENCOUNTER → 2017-07-28 | Outpatient (CLI) | payer OTHER ==
[~2017-07-28] MED LIST changes: +ASPEC325 PO
--- NOTE | 2017-07-28 10:58 | DIAGNOSTIC IMAGING REPORT ---
BILATERAL LOWER EXTREMITY VENOUS DOPPLER HISTORY: LEG SWELLING COMPARISON STUDY: None. FINDINGS: There is normal compressibility, flow, and augmentation within the bilateral lower extremity deep venous systems. IMPRESSION: No DVT within the right or left lower extremity. Electronically signed by: Anders Cortez M.D. 07/28/2017 10:57 AM Dictated Date/Time: 07/28/2017 10:57 AM
== END | disposition home or self-care (01) ==
LOC: C.ULTRBC 10:19
PROVIDERS: ATTEND Nurse Practitioner Adult Health
DX: M79.89 Other specified soft tissue disorders (principal)

== ENCOUNTER → 2017-10-21 | Outpatient (CLI) | payer OTHER | END | disposition home or self-care (01) | LOC: C.PATHSPEC 17:27 | PROVIDERS: ATTEND Dermatology | DX: L57.0 Actinic keratosis (principal) ==